=== PATIENT | male | born 1955 | race Caucasian/White ===

== ENCOUNTER 2018-10-14 06:49 | Day surgery (SDC) | payer BC, SELFPAY ==
[2018-10-14 07:03] VITALS: BP 133/76; PULSE 69; RESP 16; TEMP 36.3; O2SAT 96
[2018-10-14] MEDS: Lactated Ringers 1,000 ML 30 ML IV (07:45)
--- NOTE | 2018-10-14 08:24 | W.COLOREPORT ---
Date of service: 10/14/18 Time of Service: 08:24 Colonoscopy Report Date of procedure: 10/14/18 Pre-op diagnosis general: Colorectal cancer screening Post-op diagnosis procedure note: other (Rectal polyp) Procedure: Colonoscopy to the cecum with biopsy by cold forceps Surgeon: cJarlos Ga Anesthesia proc note operative: MAC (Leticia Sullivan CRNA; ASA 2 Mallampati class II) Estimated blood loss (mL): 1 Pathology: other (Rectal polyp) Complications: None Disposition: same day Indications: 62-year-old gentleman presenting for colorectal cancer screening by colonoscopy. He has no family history of colorectal cancer. He is been asymptomatic since his last colonoscopy over 10 years ago which was unremarkable. The procedure is been reviewed with him, and the risks of the procedure discussed. All his questions were answered to his satisfaction, and consents been obtained to proceed with colonoscopy Prep: Miralax/Dulcolax (Prep quality excellent) Procedure Start Time: 09:45 Procedure End Time: 09:05 Retraction Time: 10 Findings: In examining the colon from cecum to anus, 1 polyp was identified in the rectum no other abnormalities were noted. Procedure Description: The patient was seen in the day surgery waiting area. His identification was confirmed, and procedure checked. He was then brought to the procedure room. Monitoring for telemetry, blood pressure, oxygen saturation, and end tidal CO2 monitoring were applied. An appropriate time out was performed to confirm, identification, allergies, medication, procedure, was performed. Sedation was titrated for affect by the NATHEN; Once adequate sedation was achieved, I performed a inspection of the external perineum, and a digitial rectal examination. No significant external abnormalities were noted. On digital rectal examination, there was no blood, no masses, good rectal tone, and a normal prostate. I advanced the colonoscope from the anus to the cecum under direct visualization. The cecum was identified by the ileal-cecal valve, and the appendiceal orifice. The scope was then withdrawn in circumferential manner from the cecum to the rectum. No abnormalites were noted in the colon. The scope was then withdrawn into the rectum, and retroflexed. A single polyp was identified in the rectum and removed by cold biopsies forceps. The scope was then withdrawn, terminating the procedure. There were no complications during the procedure, and the patient tolerated the procedure well. He was returned to the day surgery recovery area in good condition. Plan: We will await pathology before making further recommendations.
--- NOTE | 2018-10-14 09:07 | BOWEL_PTH ---
PATIENT: Visahl Robb LOC: BOB U#:[id number] AGE/SX: 62/M ROOM: RE10/14/[address]: Jcarlos Ga DO : 1955 BED: DIS: 10/14/2018 SPEC #: [id number] RECD: 10/14/18 12:58 STATUS: SAVAGE REQ #: [id number] SUSY: 10/14/18 09:[address]: Jcarlos Ga DEPT: Surgical Specimen RECD BY: Rima Dunn ENTERED: 10/14/18 12:59 SP TYPE: Bowel OTHR DR: Chito Hanley MD Tissues: 1 - BIOPSY BOWEL Procedures: GROSS AND MICRO LEVEL 4 Comments: [id number]
--- NOTE | 2018-10-14 09:19 | W.PM.DSUDISC ---
Discharge Plan Disposition Patient Disposition: HOME Condition: Good Discharge Details Reason For Visit: SCREENING Attending Provider: Jcarlos Ga Primary Care Provider: Chito Hanley Home Meds and New Rx's Prescriptions: Continue ibuprofen 200 mg capsule 200 mg PO DAILY PRN PRNRF: 0 bisacodyl [Dulcolax (bisacodyl)] 5 mg tablet,delayed release (DR/EC) 10 mg PO BID Qty: 4 RF: 0 polyethylene glycol 3350 [Miralax] 17 gram/dose powder 255 g PO ONCE Qty: 255 RF: 0 aspirin [Aspir-81] 81 MG tablet,delayed release (DR/EC) 81 mg PO DAILY RF: 0 MEN'S 50+ ADVANCED MULTIVIT CP 1 EACH capsule 1 ea PO DAILY RF: 0 fluticasone 16 GM spray,suspension 2 spr NS DAILY Qty: 1 RF: 2 Discharge Instructions Instructions: Colonoscopy (DC) Activity:: Activity as Tolerated Diet:: As Tolerated Discharge Orders Discharge Orders: Discharge Order (Routine); Ordered 10/14/18 Ordered By: Jcarlos Ga DS: Diagnosis Discharge Diagnosis (1) Encounter for colorectal cancer screening: Status: Acute Asessment and Plan: Colonoscopy performed: Colonoscopy Report Date of procedure: 10/14/18 Pre-op diagnosis general: Colorectal cancer screening Post-op diagnosis procedure note: other (Rectal polyp) Procedure: Colonoscopy to the cecum with biopsy by cold forceps Surgeon: Jcarlos Ga Anesthesia proc note operative: MAC (Leticia Sullivan CRNA; ASA 2 Mallampati class II) Estimated blood loss (mL): 1 Pathology: other (Rectal polyp) Complications: None Disposition: same day Indications: 62-year-old gentleman presenting for colorectal cancer screening by colonoscopy. He has no family history of colorectal cancer. He is been asymptomatic since his last colonoscopy over 10 years ago which was unremarkable. The procedure is been reviewed with him, and the risks of the procedure discussed. All his questions were answered to his satisfaction, and consents been obtained to proceed with colonoscopy Prep: Miralax/Dulcolax (Prep quality excellent) Procedure Start Time: 09:45 Procedure End Time: 09:05 Retraction Time: 10 Findings: In examining the colon from cecum to anus, 1 polyp was identified in the rectum no other abnormalities were noted. Procedure Description: The patient was seen in the day surgery waiting area. His identification was confirmed, and procedure checked. He was then brought to the procedure room. Monitoring for telemetry, blood pressure, oxygen saturation, and end tidal CO2 monitoring were applied. An appropriate time out was performed to confirm, identification, allergies, medication, procedure, was performed. Sedation was titrated for affect by the ROLLED SEAT TRIMMER; Once adequate sedation was achieved, I performed a inspection of the external perineum, and a digitial rectal examination. No significant external abnormalities were noted. On digital rectal examination, there was no blood, no masses, good rectal tone, and a normal prostate. I advanced the colonoscope from the anus to the cecum under direct visualization. The cecum was identified by the ileal-cecal valve, and the appendiceal orifice. The scope was then withdrawn in circumferential manner from the cecum to the rectum. No abnormalites were noted in the colon. The scope was then withdrawn into the rectum, and retroflexed. A single polyp was identified in the rectum and removed by cold biopsies forceps. The scope was then withdrawn, terminating the procedure. There were no complications during the procedure, and the patient tolerated the procedure well. He was returned to the day surgery recovery area in good condition. Plan: We will await pathology before making further recommendations.
[2018-10-14 09:50] VITALS: BP 119/72; PULSE 62; RESP 16; TEMP 35.9; O2SAT 96
== END 2018-10-14 10:04 | disposition home or self-care (01) ==
PROVIDERS: PCP Family Medicine; Visit Provider Surgery
PROC: 0DJD8ZZ Inspection of Lower Intestinal Tract, Via Natural or Artificial Opening Endoscopic (ICD-10-PCS; CPT 45378; principal; 2018-10-14 08:30)
DX: Z12.11 Encounter for screening for malignant neoplasm of colon (principal); K62.1 Rectal polyp
CPT/HCPCS: 45380; 88305

== ENCOUNTER 2022-12-25 01:03 | Outpatient (CLI) | payer MEDICARE, SELFPAY ==
[2022-12-25 12:44] LABS: Anion Gap 5.4 mmol/L (3-11); BUN 23 mg/dL (7-18); CO2 29.6 mmol/L (21.0-32.0); Calcium 9.1 mg/dL (8.5-10.1); Chloride 104 mmol/L (98-107); Cholesterol 185 mg/dL (<200); Estimated GFR 82.49 (mL/min/1.73m2); Glucose 98 mg/dL (74-106); HDL Cholesterol 64 mg/dL (40-60); Potassium 3.9 mmol/L (3.5-5.1); Sodium 139 mmol/L (136-145)
[2022-12-25 13:18] LABS: Triglyceride < 25 mg/dL (<150)
[2022-12-25 18:34] LABS: LDL CHOLESTEROL 116 mg/dL (<100)
== END 2022-12-25 01:04 | disposition home or self-care (01) ==
LOC: LOS 01:03
PROVIDERS: PCP Nurse Practitioner Family; Visit Provider Nurse Practitioner Family
DX: I10 Essential (primary) hypertension (principal)
CPT/HCPCS: 36415; 80048; 80061; 83721

== ENCOUNTER 2022-12-29 17:04 | Outpatient (REF) | payer MEDICARE, SELFPAY ==
[2022-12-29 18:21] LABS: COMMENT (LAB VIEW ONLY) 123.78 mg/dL; Microalb ug/mg Crea 6.6 ug/mg Cr
== END 2022-12-29 17:05 | disposition home or self-care (01) ==
LOC: LBN 17:04
PROVIDERS: PCP Nurse Practitioner Family; Visit Provider Nurse Practitioner Family
DX: I10 Essential (primary) hypertension (principal)
CPT/HCPCS: 82043; 82570

== ENCOUNTER 2023-01-11 08:20 | Outpatient (CLI) | payer MEDICARE, SELFPAY ==
[2023-01-11 13:04] LABS: Anion Gap 6.7 mmol/L (3-11); BUN 25 mg/dL (7-18); CO2 28.3 mmol/L (21.0-32.0); CREATININE 0.9 mg/dL (0.70-1.30); Calcium 8.9 mg/dL (8.5-10.1); Chloride 105 mmol/L (98-107); Estimated GFR 93.61 (mL/min/1.73m2); Glucose 99 mg/dL (74-106); Potassium 3.7 mmol/L (3.5-5.1); Sodium 140 mmol/L (136-145)
[2023-01-11 18:11] LABS: PSA, Screening 0.6 ng/mL (<=4.5)
== END 2023-01-11 08:21 | disposition home or self-care (01) ==
PROVIDERS: PCP Nurse Practitioner Family; Visit Provider Nurse Practitioner Family
DX: I10 Essential (primary) hypertension (principal); Z12.5 Encounter for screening for malignant neoplasm of prostate
CPT/HCPCS: 36415; 80048; 84153

== ENCOUNTER 2023-02-17 07:31 | Outpatient (CLI) | payer MEDICARE, SELFPAY ==
--- NOTE | 2023-02-17 07:30 | RT.EKG_ITS ---
APPROVED REPORT Exam: Resting ECG Reason for Exam: chest tightness Patient Location: O HR:66 bpm ECG Measurements Heart Rate 66 AXIS MS 195 P 40 QRSd 101 QRS -9 QT 442 T 36 QTc 464 Conclusion Sinus rhythm...normal P axis, V-rate 50- 99 Probable left ventricular hypertrophy...multiple LVH criteria
== END 2023-02-17 07:32 | disposition home or self-care (01) ==
LOC: DI.CM 07:34
PROVIDERS: PCP Nurse Practitioner Family; Visit Provider Nurse Practitioner Family
DX: R07.89 Other chest pain (principal); I42.2 Other hypertrophic cardiomyopathy
CPT/HCPCS: 93010

== ENCOUNTER 2023-02-19 12:04 | Emergency (ER) | payer MEDICARE, SELFPAY ==
--- NOTE | 2023-02-19 12:00 | RT.EKG_ITS ---
APPROVED REPORT Exam: Resting ECG Reason for Exam: Patient Location: E HR:78 bpm ECG Measurements Heart Rate 78 AXIS AZ 196 P 47 QRSd 111 QRS -7 QT 395 T 48 QTc 451 Conclusion Sinus rhythm...normal P axis, V-rate 60- 99 Probable left ventricular hypertrophy...(RaVL+SV3)xQRSd >280 sinus rhythm, left axis, LVH
[2023-02-19 12:12] VITALS: BP 165/64; PULSE 85; RESP 18; TEMP 36.9; O2SAT 96
[2023-02-19 12:32] LABS: Abs Immature Grans 0.01 10^3/uL (0.0-0.06); Absolute Basophil Count 0.05 10^3/uL (0.0-0.2); Absolute Eosinophil Count 0.26 10^3/uL (0.0-0.7); Absolute Lymphocyte Count 1.91 10^3/uL (1.2-3.4); Absolute Monocyte Count 0.55 10^3/uL (0.1-0.8); Absolute Neutrophil Count 3.68 10^3/uL (1.2-6.7); Basophils % 0.8; HCT 43.9 % (40.0-50.0); Immature Grans % 0.2; Lymphocytes % 29.6; MCH 31.7 pg (27.0-33.0); MCHC 34.2 % (32.0-36.0); MCV 93 fL (80-95); MPV 10.2 fL (8.0-11.0); Monocytes % 8.5; Neutrophils % 56.9; Platelet Count 287 10^3/uL (130-400); RBC 4.73 10^6/uL (4.36-5.78); RDW 12.1 % (11.8-14.1); RDW-SD 41.6 fL; WBC 6.46 10^3/uL (4.4-10.8)
[2023-02-19] MEDS: Aspirin 81 MG CHEW 324 MG CH (12:51)
[2023-02-19 13:00] VITALS: BP 151/59; PULSE 78; RESP 16; O2SAT 94
[2023-02-19 13:21] LABS: ALT 25 U/L (16-63); AST 22 U/L (15-37); Albumin 3.9 g/dL (3.4-5.0); Alkaline Phosphatase 78 U/L (46-116); Anion Gap 9.8 mmol/L (3-11); BUN 17 mg/dL (7-18); Bilirubin, Total 0.8 mg/dL (0.2-1.0); CO2 25.2 mmol/L (21.0-32.0); Calcium 8.7 mg/dL (8.5-10.1); Chloride 106 mmol/L (98-107); Estimated GFR 82.49 (mL/min/1.73m2); Glucose 107 mg/dL (74-106); Magnesium 2.1 mg/dL (1.8-2.4); Sodium 141 mmol/L (136-145); Troponin I < 50 ng/L (<or=60)
--- NOTE | 2023-02-19 13:39 | ED.GENADUL_ITS ---
Discharge Plan Disposition Patient Disposition: Home Discharge Details Clinical Impression: Chest pain, unspecified Primary Care Provider: Basil Cruz ED Provider: Chito Moy Home Meds and New Rx's Prescriptions: Continued amoxicillin-pot clavulanate 875-125 mg tablet 1 tab PO Q12H Qty: 28 0RF Rx Instructions: Take 1 tablet twice a day for 2 weeks amlodipine 5 mg tablet 5 mg PO DAILY Qty: 90 4RF MEN'S 50+ ADVANCED MULTIVIT CP 1 EACH capsule 1 ea PO DAILY fluticasone propionate 50 mcg/actuation spray,suspension 2 spray NS DAILY Qty: 2 11RF sildenafil 100 mg tablet 100 mg PO DAILY PRN (Reason: sexual activity) Qty: 30 12RF Rx Instructions: administer 30 minutes to 4 hours before activity losartan 100 mg tablet 100 mg PO DAILY Qty: 30 0RF Discharge Instructions Instructions: Chest Pain (ED) Additional Instructions: Please read all of the information that accompanies these instructions. You were seen in the emergency department for your chest pain. Please schedule an appointment with your primary care provider later this week. Please return to the emergency department if develop shortness of breath any sweating with the chest pain or if you have any concerns. Discharge Data Discharge Date/Time-TO BE ENTERED AT DEPARTURE: 02/19/23 16:43 Medical Decision Making <Antonio Mtz NP - Last Filed: 02/20/23 08:22> Patient presenting to the emergency department for chief complaint of chest pain. Patient was recently diagnosed with hypertension and they have been trying different medications. Last week they changed him off of lisinopril due to it causing a cough onto a new medication and at that visit also noticed a new murmur that was very subtle. Patient states this morning he started having chest pain with some discomfort radiating into left arm. He states some fuzzy vision but otherwise denies any vision changes. Patient denies all other symptoms. Physical exam is unremarkable for any acute findings. We will plan on performing EKG and labs along with chest x-ray. If able we will attempt to get an echo given new onset murmur. Please see physician interpretation for full interpretation of EKG but upon my review patient is in sinus rhythm with a rate of 78, some slight ST depressions are noted in lead I and II otherwise EKG is nondiagnostic and does not meet acute STEMI criteria. We will continue to monitor. Review of labs show a completely normal CBC, CMP shows slightly elevated glucose at 107 otherwise unremarkable. Initial troponin is negative otherwise all of the labs are within normal range. We were able to obtain echo pending delta tro ponin. Pending echo and delta troponin did discuss with patient his higher heart score with moderate risk of Mace. After informed discussion and shared decision making patient did state that if work-up was negative he would prefer to have stress testing on outpatient basis. I feel this is reasonable given that patient is now pain-free with no discomfort at this time. Patient will be signed out pending echo results, repeat EKG, and troponin. Outpatient stress test was ordered with anticipation of discharge. HPI <Antonio Mtz NP - Last Filed: 02/20/23 08:22> General Mode of arrival: ambulatory . Date/Time Provider Initiated Documentation: 02/19/23 12:14 . Limitations to Documentation: no limitations . Information obtained by: patient and RN notes reviewed . History of Present Illness 67 year old M presents to the emergency department with the chief complaint of Chest pain, described as moderate, with intensity rated at 3. Quality is described as aching, and is localized to the chest. Patient extremity. Patient started experiencing this hour(s) (3) and it has been constant. No relieving factors improve symptom(s), No exacerbating factors reported . Patient notes other (Slight fuzzy vision). Patient did receive the following treatments prior to arrival, none Related Data Home Medications Medication Instructions Recorded Confirmed Men's 50+ Advanced Multivit Cp 1 ea PO DAILY 05/25/13 02/19/23 fluticasone propionate 50 2 spray NS DAILY #2 inhalations 11/24/22 02/19/23 mcg/actuation nasal spray,suspension sildenafil 100 mg tablet 100 mg PO DAILY PRN sexual 11/24/22 02/19/23 activity #30 tabs losartan 100 mg tablet 100 mg PO DAILY #30 tabs 02/02/23 02/19/23 amlodipine 5 mg tablet 5 mg PO DAILY #90 tabs 02/17/23 02/19/23 amoxicillin 875 mg-potassium 1 tab PO Q12H #28 tabs 02/17/23 02/19/23 clavulanate 125 mg tablet Previous Rx's Medication Instructions Recorded fluticasone propionate 50 2 spray NS DAILY #2 inhalations 11/24/22 mcg/actuation nasal spray,suspension sildenafil 100 mg tablet 100 mg PO DAILY PRN sexual 11/24/22 activity #30 tabs losartan 100 mg tablet 100 mg PO DAILY #30 tabs 02/02/23 amlodipine 5 mg tablet 5 mg PO DAILY #90 tabs 02/17/23 amoxicillin 875 mg-potassium 1 tab PO Q12H #28 tabs 02/17/23 clavulanate 125 mg tablet Allergies Allergy/AdvReac Type Severity Reaction Status Date / Time lisinopril AdvReac Intermediate Other (See Uncoded 02/19/23 12:18 Comment) General Stated Complaint: Chest Pain TERRANCE: 3 Review of Systems <Antonio Mtz NP - Last Filed: 02/20/23 08:22> Constitutional Constitutional: Denies chills, Denies fever(s), Denies headache(s), Denies lethargy and Denies malaise Eyes Eyes: Denies blurry vision, Reports change in vision and Denies loss of vision ENT Ears, Nose, Mouth, and Throat: Denies headache(s), Denies neck pain and Denies sore throat Cardiovascular Cardiovascular: Reports as per HPI, Reports chest pain, Denies edema, Denies irregular heart rhythm, Denies palpitations, Denies dyspnea and Denies dyspnea on exertion Respiratory Respiratory: Denies dyspnea and Denies dyspnea on exertion Gastrointestinal Gastrointestinal: Denies abdominal pain, Denies nausea and Denies vomiting Musculoskeletal Musculoskeletal: Denies neck pain Neurologic Neurologic: Denies headache(s) and Denies loss of vision Psychiatric Psychiatric: Denies anxiety Endocrine Endocrine: Denies cold intolerance, Denies heat intolerance and Denies palpitations PFSH <Antonio Mtz NP - Last Filed: 02/20/23 08:22> All Active Problems (Updated 02/19/23 @ 16:35 by Chito Moy MD) Allergic rhinitis (Acute) Anxiety (Acute) History of tobacco use (Acute) Polyp of colon (Acute 10/28/06) multiple hyperplastic polyps Abdominal pain (Acute) Encounter for annual physical exam (Acute) Right arm pain (Acute) Increased body mass index (BMI) (Acute) Screening for diabetes mellitus (Acute) Hypertension (Chronic) Murmur, cardiac (Acute) Perforated tympanic membrane of both ears on examination (Acute) Rhinosinusitis (Acute) Chest pain, unspecified (Acute) Medical History Encounter for colorectal cancer screening Perforation of tympanic membrane Surgical History H/O colonoscopy (10/14/18) dr newby, no abnormalities, repeat 10 years Family History Mother , 84 Stroke Father , 60 Brain cancer Brother , Accidental at age 2. No problems noted. Brother No problems noted. Brother No problems noted. Brother No problems noted. Son No problems noted. Daughter No problems noted. Daughter No problems noted. Paternal Grandmother , 80s Stroke Maternal Grandmother , 22 No problems noted. Paternal Grandfather , 70s No problems noted. Maternal Grandfather , 80s No problems noted. Social History Smoking/Tobacco Use Status: Former Tobacco Use tobacco type: cigarettes Quit Date: 11/29/89 Tobacco: How many years used: 10 Second Hand Exposure: No Smoking risk assessment performed?: Yes Alcohol Intake: current Alcohol Intake frequency: a few times a week Alcohol type: hard liquor Drug use: Never Substance use type: does not use Caregiver/Support person: No Household members: significant other Housing: house Communication Needs: None Do you need help understanding health information?: Rarely Pets and animals: Yes Pets and animals: dog(s) Sexually active: Yes Do you think of yourself as: straight/heterosexual Current gender identity: male What is your relationship status?: living with partner How often do you talk on the phone with friends or family?: three or more times per week How often do you get together with friends or relatives?: twice per week How often do you attend buddhist or islam services?: 1-3 times per year Do you belong to any clubs or organized social groups?: no Panel score (0-1 are the most socially isolated patients): 2 What type of physical activity do you participate in: walking and other Details: work Duration: 15-30 minutes/day Frequency: 1-2 times per week Ambar/Restorationist: Buddhism Special ambar needs: No Seatbelt use: always Helmet use: Yes Helmet use: always Drive intox or ride w/intox medical driver: No Do you feel safe at home: Yes Do you feel safe in your relationship?: Yes Exam <Antonio Mtz NP - Last Filed: 02/20/23 08:22> Const General: cooperative, healthy appearing, comfortable, no acute distress, not diaphoretic and not ill appearing Nutritional Appearance: average body habitus Orientation: alert, awake and oriented x3 Limitations: mental status not altered Neck Neck: normal visual inspection, full ROM, trachea midline, supple and no anterior neck swelling Thyroid: thyroid normal Carotids: normal carotid upstroke and no bruits Chest Chest: normal inspection of the chest Resp Effort & Inspection: normal respiratory effort and able to speak in complete sentences Auscultation: clear to auscultation bilaterally Cardio Jugular venous pressure: no JVD Palpation: normal PMI Rate: regular rate Rhythm: regular rhythm Heart Sounds: no click, no gallops, murmur systolic II/ and no rubs Bruits: no abdominal aortic bruits and no carotid bruits Pulses: radial pulses present bilaterally 2+ GI Inspection: normal to inspection Palpation: soft, no aortic enlargement, no pulsatile masses and nontender Auscultation: normal bowel sounds Skin General skin exam: no rashes or lesions noted Neuro General: patient alert, patient awake, patient oriented x3, tone normal and moves all extremities Course <Antonio Mtz NP - Last Filed: 02/20/23 08:22> Vital Signs Vital signs: Vital Signs Temperature 36.9 C 02/19/23 12:12 Pulse 85 02/19/23 12:12 Respiratory Rate 18 02/19/23 12:12 Blood Pressure 165/64 H 02/19/23 12:12 Pulse Oximetry 96 02/19/23 12:12 Temperature 36.9 C 02/19/23 12:12 Temperature Source Oral 02/19/23 12:12 Pulse 85 02/19/23 12:12 Respiratory Rate 18 02/19/23 12:12 Respiratory Effort Short of Breath 02/19/23 12:18 Blood Pressure 165/64 H 02/19/23 12:12 Blood Pressure Position Sitting 02/19/23 12:12 Pulse Oximetry 96 02/19/23 12:12 Oxygen Delivery Method Room Air 02/19/23 12:12 Oxygen Flow Rate 0 02/19/23 12:12 Pain Level 6 02/19/23 12:23 Lab/Test Results Lab/Test Results: Laboratory Tests Range/Units 02/19/23 02/19/23 12:20 12:20 WBC (4.4-10.8) 10^3/uL 6.46 RBC (4.36-5.78) 10^6/uL 4.73 Hgb (13.5-17.5) g/dL 15.0 Hct (40.0-50.0) % 43.9 MCV (80-95) fL 93 MCH (27.0-33.0) pg 31.7 MCHC (32.0-36.0) % 34.2 RDW (11.8-14.1) % 12.1 Plt Count (130-400) 10^3/uL 287 MPV (8.0-11.0) fL 10.2 Immature Gran % 0.2 Neutrophils % 56.9 Lymphocytes % 29.6 Monocytes % 8.5 Eosinophils % 4.0 Basophils % 0.8 Nucleated RBC % (0.0-0.3) % 0.0 Absolute Neutrophils (1.2-6.7) 10^3/uL 3.68 Absolute Lymphocytes (1.2-3.4) 10^3/uL 1.91 Absolute Monocytes (0.1-0.8) 10^3/uL 0.55 Absolute Eosinophils (0.0-0.7) 10^3/uL 0.26 Absolute Basophils (0.0-0.2) 10^3/uL 0.05 Sodium (136-145) mmol/L 141 Potassium (3.5-5.1) mmol/L 4.0 Chloride (98-107) mmol/L 106 Carbon Dioxide (21.0-32.0) mmol/L 25.2 Anion Gap (3-11) mmol/L 9.8 BUN (7-18) mg/dL 17 Creatinine (0.70-1.30) mg/dL 1.0 Est GFR (CKD-EPI 2020) (mL/min/1.73m2) 82.49 Glucose (74-106) mg/dL 107 H Calcium (8.5-10.1) mg/dL 8.7 Magnesium (1.8-2.4) mg/dL 2.1 Total Bilirubin (0.2-1.0) mg/dL 0.8 AST (15-37) U/L 22 ALT (16-63) U/L 25 Alkaline Phosphatase (46-116) U/L 78 Troponin I (<or=60) ng/L < 50 Total Protein (6.4-8.2) g/dL 7.0 Albumin (3.4-5.0) g/dL 3.9 Sign Out <Antonio Mtz NP - Last Filed: 02/20/23 08:22> Sign Out Data: Sign Out Comment: Patient pending echo results, chest x-ray results, and delta troponin. Disposition following those results. Patient is pain-free and requesting discharge for further outpatient follow-up on stress test. Patient states understanding of high risk and low threshold to return for worsening symptoms or return of symptoms. Last updated by Antonio Mtz NP at 02/19/23 15:46 PAWSS <Antonio Mtz NP - Last Filed: 02/20/23 08:22> Have you Been Recently Intoxicated or Drunk Within the Last 30 days?: No Have you Ever Experienced Previous Episodes of Alcohol Withdrawal?: No Have you ever Experienced Withdrawal Seizures?: No Have you ever Experienced Delirium Tremens(DT)s?: No Have you ever undergone Alcohol Rehabilitation Treatment (i.e, inpt ot outpatient treatment programs)?: No Have you ever Experienced Blackouts?: No Have you ever Combined Alcohol with other Downers within the last 90 days?: No Have you ever Combined Alcohol with any other Substance of Abuse during the last 90 days?: No Positive Blood Alcohol level on Presentation? [PCS.BAL]: No Evidence of Increased Autonomic Activity (i.e. HR>120, tremor, sweating, agitation, nausea)?: No Result: 0 <Chito Moy MD - Last Filed: 02/20/23 20:35> Result: 0
[2023-02-19 14:00] VITALS: BP 141/64; PULSE 77; O2SAT 95
[2023-02-19 14:30] VITALS: BP 147/62; PULSE 75; O2SAT 95
[2023-02-19 15:48] LABS: Troponin I < 50 ng/L (<or=60)
--- NOTE | 2023-02-19 15:56 | W.EDPROG ---
Date of service: 02/19/23 Time of Service: 15:56 Medical Decision Making I received signout on this 67-year-old male with a history of obesity and hypertension pending a repeat troponin, ECG, and final read of echocardiogram in setting of chest pain. Patient has been offered hospitalization for stress test given his elevated heart score. Please see documentation from patient's original provider as the patient declined hospitalization. We will follow-up following testing. 4:36 PM I met with the patient after his repeat troponin was negative. His ECG showed normal sinus rhythm with no ischemic changes. He did have left axis deviation and with LVH based on voltage criteria in aVL most consistent with longstanding hypertension. Patient did have severe aortic regurgitation but no hemodynamically significant valvular aortic stenosis. He had a normal EF with no significant wall motion abnormalities on contrast echocardiogram. I advised patient that this report was still a draft. I reported that I was planning on calling radiology to determine if the report would be finalized this afternoon. Patient wanted to go home. We will plan on calling him if the report becomes finalized on my shift. I advised him to return to the emergency department if he developed any shortness of breath chest pain that radiates into his arm or if he had any other concerns. His prior provider ordered a stress test for him next week. Sign Out Sign Out Data: Sign Out Comment: Patient pending echo results, chest x-ray results, and delta troponin. Disposition following those results. Patient is pain-free and requesting discharge for further outpatient follow-up on stress test. Patient states understanding of high risk and low threshold to return for worsening symptoms or return of symptoms. Last updated by Antonio Mtz NP at 02/19/23 15:46 Discharge Plan Disposition Patient Disposition: Home Discharge Details Clinical Impression: Chest pain, unspecified Primary Care Provider: Basil Cruz ED Provider: Chito Moy Home Meds and New Rx's Prescriptions: Continued amoxicillin-pot clavulanate 875-125 mg tablet 1 tab PO Q12H Qty: 28 0RF Rx Instructions: Take 1 tablet twice a day for 2 weeks amlodipine 5 mg tablet 5 mg PO DAILY Qty: 90 4RF MEN'S 50+ ADVANCED MULTIVIT CP 1 EACH capsule 1 ea PO DAILY fluticasone propionate 50 mcg/actuation spray,suspension 2 spray NS DAILY Qty: 2 11RF sildenafil 100 mg tablet 100 mg PO DAILY PRN (Reason: sexual activity) Qty: 30 12RF Rx Instructions: administer 30 minutes to 4 hours before activity losartan 100 mg tablet 100 mg PO DAILY Qty: 30 0RF Discharge Instructions Instructions: Chest Pain (ED) Additional Instructions: Please read all of the information that accompanies these instructions. You were seen in the emergency department for your chest pain. Please schedule an appointment with your primary care provider later this week. Please return to the emergency department if develop shortness of breath any sweating with the chest pain or if you have any concerns. Discharge Data Discharge Date/Time-TO BE ENTERED AT DEPARTURE: 02/19/23 16:43
--- NOTE | 2023-02-19 16:02 | DI.RAD_ITS ---
Exam(s) XR CHEST 2V PA LATERAL EXAM: XR CHEST 2V PA LATERAL CLINICAL HISTORY: chest pain TECHNIQUE: 2D digital imaging was performed of the chest. Two images were obtained. PA and lateral views were obtained. COMPARISON: CR CHEST 2 VIEWS PA,LAT from 01/12/2014 FINDINGS: MEDIASTINUM: Normal. HEART: Normal. PULMONARY VASCULATURE: Normal. There is tortuosity of the thoracic aorta. LUNGS: Clear. PLEURAL SPACE: No pleural effusion or pneumothorax. BONE:Within normal limits for the patient's age. OTHER FINDINGS:Normal. IMPRESSION: No acute pulmonary findings. DATA REPOSITORY: RADIATION DOSE DELIVERED:
--- NOTE | 2023-02-20 00:42 | NUR.NOTE ---
regular exercise treadmill stress test requisition faxed to [phone].Nursing Note:
--- NOTE | 2023-02-22 09:11 | NUR.NOTE ---
Nursing Note: Accessed patient chart to determine how many EKG orders were in the chart from the ED. There was an outstanding EKG in ordered status. There are no EKG's in the [employer] system that are outstanding. EKG order was deleted.
== END 2023-02-19 16:43 | disposition home or self-care (01) ==
PROVIDERS: Nurse Practitioner Family; Emergency Provider Emergency Medicine; PCP Nurse Practitioner Family
DX: R07.89 Other chest pain (principal); I11.9 Hypertensive heart disease without heart failure; H53.8 Other visual disturbances; R94.31 Abnormal electrocardiogram [ECG] [EKG]; R73.09 Other abnormal glucose
CPT/HCPCS: 36415; 80053; 93005; 99284; 71046; 83735; 84484; 85025; 93010; 93306

== ENCOUNTER 2023-02-25 00:57 | Outpatient (CLI) | payer MEDICARE, SELFPAY ==
--- NOTE | 2023-02-25 | ETT_ITS ---
APPROVED REPORT Exam: Exercise Treadmill Patient Location: Out-Patient Room/Bed: Stress Nurse: Smiley Rehman RN Ordering Provider:NICO MAGAÑA, Contact Number: [phone] BMI: 25.96 Baseline Rhythm: Sinus Rhythm Comment: Patient noted to be very anxious. REports BP's in the 160's systolically at home at baseline . Patient also reports feeling scared and nervous regarding unknown prognosis. REassured and all qu estions answered by stress team. Indications: Chest pain Medical History Medical History: Chest pain, aortic regurgitation, murmur, HTN, increased BMI, anxiety Cardiac Medications: Losartan, amlodipine Allergies: lisinopril Cardiac Risk Factors: Family hx, HTN, Previous smoker Previous Cardiac Procedures: None Pretest Chest Pain Characteristics: None Exercise History: Indeterminate Physical Disabilities: None Lung Sounds: Clear to auscultation Heart Sounds: Regular Stress Test Details Test: Exercise stress testing was performed using a Harsha protocol. Rest Stress HR Resting HR Supine: 77 bpm Max Heart Rate (APMHR): 153 bpm Resting HR Standin bpm Target HR (85% APMHR): 130 bpm Max HR Achieved: 133 bpm % of APMHR: 87 Recovery HR: 88 bpm HR response to stress: Normal HR response to stress BP Resting BP Supine: 190/72 mmHg Resting BP Standin/68 mmHg Max BP: 230/62 mmHg Recovery BP: 156/72 mmHg BP response to stress: Abnormal hypertensive response to stress. Comment: Patient noted and reports to be nervous and anxious prior top test. Reports BP's in the 160' s systolically at home. ECG Stress ECG: Sinus Rhythm ST Change: No significant ST segment changes noted Arrhythmia: None Recovery ECG: Sinus Rhythm Recovery ST Change: No significant ST segment changes noted Recovery Arrhythmia: Rare PVC Clinical Reason for Termination: HTN, , Target HR Achieved Stress Symptoms: Slight Dyspnea Exercise duration: 7 min00 sec Highest Stage Reached: Stage 3: 3.4 mph at 14% grade. Exercise capacity: 8.58 METs Angina Score: None Loera Treadmill Score: 6.5 Rate Pressure Product: 08906 Stress ECG Conclusion 1. Resting electrocardiogram showed voltage for left ventricular hypertrophy 2. Patient exercised on the Harsha protocol and completed a workload of 8.58 METS 3. Hypertensive blood pressure response to exercise. Normal heart rate response to exercise. The pa melanie achieved 87% of predicted heart rate for age 4. There was no electrocardiographic evidence of myocardial ischemia 5. There were no significant dysrhythmias Loera Treadmill Score is 6.5 which is Low risk. Stress Test Summary STAGE Time (mins) Speed (mph) Grade (%) HR BP SpO2 SYMPTOMS METS Supine 77 190/78 Standing 79 178/68 98 1 3 1.7 10 102 210/86 98 4.5 2 6 2.5 12 125 220/82 7 3 9 3.4 14 126 10 1 min recovery 113 230/62 3 min recovery 93 210/68 6 min recovery 88 156/72 Patient noted to be very anxious. Reports BP's in the 160's systolically at home at baseline. Patient also reports feeling scared and nervous regarding unknown prognosis. Reassured and all questions a nswered by stress team.
== END 2023-02-25 01:17 ==
LOC: DI 00:58
PROVIDERS: PCP Nurse Practitioner Family; Visit Provider Nurse Practitioner Family
DX: R07.9 Chest pain, unspecified (principal)
CPT/HCPCS: 93016; 93018; 99203; 93017

== ENCOUNTER 2023-02-25 08:28 | Outpatient (CLI) | payer MEDICARE, SELFPAY | END 2023-02-25 08:29 | disposition home or self-care (01) | LOC: DI.CARD 08:29 | PROVIDERS: PCP Nurse Practitioner Family; Visit Provider Internal Medicine Cardiovascular Disease | CPT/HCPCS: 93010 ==

== ENCOUNTER 2023-03-01 03:30 | Outpatient (CLI) | payer MEDICARE, SELFPAY ==
[2023-03-01 11:21] LABS: INR 1.1 (0.9-1.1); Prothrombin Time 10.9 sec (9.3-11.0)
== END 2023-03-01 03:31 | disposition home or self-care (01) ==
LOC: LBO 03:30
PROVIDERS: PCP Nurse Practitioner Family; Visit Provider Internal Medicine Cardiovascular Disease
DX: I35.1 Nonrheumatic aortic (valve) insufficiency (principal); M79.601 Pain in right arm; Z01.812 Encounter for preprocedural laboratory examination
CPT/HCPCS: 36415; 85610; 85730

== ENCOUNTER 2023-05-07 13:14 | Outpatient (CLI) | payer MEDICARE, SELFPAY ==
[2023-05-07 14:12] LABS: ALT 29 U/L (16-63); AST 18 U/L (15-37); Albumin 3.8 g/dL (3.4-5.0); Alkaline Phosphatase 71 U/L (46-116); Anion Gap 6.2 mmol/L (3-11); BUN 19 mg/dL (7-18); Bilirubin, Total 0.6 mg/dL (0.2-1.0); CO2 26.8 mmol/L (21.0-32.0); CREATININE 0.9 mg/dL (0.70-1.30); Calcium 8.4 mg/dL (8.5-10.1); Calculated LDL 51 mg/dL (<100); Chloride 105 mmol/L (98-107); Cholesterol 123 mg/dL (<200); Estimated GFR 93.61 (mL/min/1.73m2); Glucose 92 mg/dL (74-106); HDL Cholesterol 58 mg/dL (40-60); Potassium 3.8 mmol/L (3.5-5.1); Sodium 138 mmol/L (136-145); Total Protein 6.9 g/dL (6.4-8.2); Triglyceride 71 mg/dL (<150)
== END 2023-05-07 13:15 | disposition home or self-care (01) ==
LOC: LBO 13:16
PROVIDERS: PCP Nurse Practitioner Family; Visit Provider Thoracic Surgery (Cardiothoracic Vascular Surgery)
DX: I10 Essential (primary) hypertension (principal); E78.5 Hyperlipidemia, unspecified
CPT/HCPCS: 80053; 80061

== ENCOUNTER 2023-06-11 14:29 | Emergency (ER) | payer MEDICARE, SELFPAY ==
--- NOTE | 2023-06-11 14:30 | RT.EKG_ITS ---
APPROVED REPORT Exam: Resting ECG Reason for Exam: chest pain Patient Location: E HR:84 bpm ECG Measurements Heart Rate 84 AXIS RI 181 P 30 QRSd 104 QRS 2 QT 360 T 123 QTc 425 Conclusion Sinus rhythm...normal P axis, V-rate 60- 99 Probable LVH with secondary repol abnrm...multiple LVH criteria ST elevation, consider inferior injury...ST >0.08mV, II III aVF Physician: no stemi, minimal inferior elevation and anterior t wave abnormality. appears changed from prior ekg on 02/17/23
[2023-06-11 14:35] VITALS: BP 128/89; PULSE 89; RESP 18; TEMP 36.7; O2SAT 95
--- NOTE | 2023-06-11 14:45 | DI.CT_ITS ---
Exam(s) CT THORAX CTA EXAM: CT THORAX CTA CLINICAL HISTORY: recent thoracic AA repair and AV rep. now CP. TECHNIQUE: Imaging Protocol: CT angiography of the chest was performed using pulmonary embolus jitendra col. Multi planar reconstructions were performed. CONTRAST MATERIAL: Intravenous: Omnipaque 350 Contrast volume: 100 cc COMPARISON: CR XR CHEST 2V PA LATERAL from 02/19/2023 FINDINGS: CHEST: PULMONARY ARTERIES: There are no obvious intraluminal filling defects to suggest acute pulmonary embo li. LUNGS: There are symmetrical atelectasis-infiltrates in both lower lobes involving the posterior basa l segments, not associated with pleural effusion infiltrates in the upper lobes nor in right middle l obe and lingular segment of the left lung.. No pneumothorax. MEDIASTINUM: There is no hilar nor mediastinal adenopathy. Multiple small sub cm nodules noted in the left thyroid lobe. CARDIAC: Recent sternotomy. Sternotomy wires.There is a prosthetic aortic valve. There is some comp cyndi fluid 8 mm thick surrounding the ascending thoracic aorta. There is no pericardial effusion. No evidence of obvious dissection. Aortic arch anatomy is conventional. No evidence significant steno sis at the origin of the great vessels off the arch. There is a small outpouching arising from the i nferior aspect of the distal aortic arch, measuring approximately 8 by 5 mm. PARTIALLY VISUALIZED UPPERMOST ABDOMEN: Nonobstructive 3 millimeter calculus in left kidney. Adrenal s unremarkable. Spleen size normal. Celiac and SMA are patent. OSSEOUS: No significant osseous lesions.No fractures.. IMPRESSION: 1. No evidence of acute pulmonary emboli. No evidence of pulmonary infarction.Relatively symmetrical infiltrates-atelectasis in both lower lobes. No associated pleural effusions. 2. Recent sternotomy. Prosthetic aortic valve. There is fluid surrounding the ascending thoracic ao rta consistent with element of periaortic hematoma. Appropriate close follow-up recommended. No dis section evident. No obvious pericardial effusion. 3. There is an 8 x 5 mm outpouching evident on the inferior aspect of the distal aortic arch consiste nt with small pseudoaneurysm. First read by [facility] RADIATION DOSE DELIVERED: 492.48mGy.cm Total DLP DATA REPOSITORY: All CT scans at this facility are submitted to the National Radiology Data Registry (NRDR) Dose Index Registry (DIR) with the [employer] (ACR). RADIATION OPTIMIZATION: All CT scans at this facility use at least one of these dose optimization te chniques: automated exposure control; mA and/or kV adjustment per patient size (includes targeted exa ms where dose is matched to clinical indication); or iterative reconstruction.
[2023-06-11 15:05] LABS: Abs Immature Grans 0.03 10^3/uL (0.0-0.06); Absolute Basophil Count 0.05 10^3/uL (0.0-0.2); Absolute Eosinophil Count 0.26 10^3/uL (0.0-0.7); Absolute Lymphocyte Count 1.82 10^3/uL (1.2-3.4); Absolute Monocyte Count 0.68 10^3/uL (0.1-0.8); Absolute Neutrophil Count 5.69 10^3/uL (1.2-6.7); Basophils % 0.6; HCT 38.1 % (40.0-50.0); HGB 12.7 g/dL (13.5-17.5); Immature Grans % 0.4; Lymphocytes % 21.3; MCH 31.1 pg (27.0-33.0); MCHC 33.3 % (32.0-36.0); MCV 93 fL (80-95); MPV 9.5 fL (8.0-11.0); Neutrophils % 66.7; Platelet Count 503 10^3/uL (130-400); RBC 4.08 10^6/uL (4.36-5.78); RDW 11.5 % (11.8-14.1); RDW-SD 39.1 fL; WBC 8.53 10^3/uL (4.4-10.8)
--- NOTE | 2023-06-11 15:09 | W.ED.GENAD ---
Discharge Plan Discharge Details Chief Complaint: Dizzy/Sync Primary Care Provider: Basil Cruz ED Provider: Lorenzo Del Rio Home Meds and New Rx's Prescriptions: No Action losartan 100 mg tablet 100 mg PO DAILY Qty: 90 1RF amlodipine 5 mg tablet 5 mg PO DAILY Qty: 90 4RF rosuvastatin 5 mg tablet 5 mg PO DAILY Qty: 90 0RF MEN'S 50+ ADVANCED MULTIVIT CP 1 EACH capsule 1 ea PO DAILY fluticasone propionate 50 mcg/actuation spray,suspension 2 spray NS DAILY Qty: 2 11RF sildenafil 100 mg tablet 100 mg PO DAILY PRN (Reason: sexual activity) Qty: 30 12RF Rx Instructions: administer 30 minutes to 4 hours before activity Medical Decision Making This is a 67-year-old male with a past medical history of thoracic aortic aneurysm, aortic valve disease, high cholesterol, who recently had open heart surgery on May 25 of this year, and subsequently had his aortic valve replaced, as well as aortic aneurysm repair at the same time. Surgery was complicated by pneumothoraces, he spent a few days in the ICU and eventually was discharged about 1-1/2 weeks ago. Patient has been doing okay since then, but has noted that every now and then he would get spells/episodes of feeling lightheaded, getting double vision, becoming diaphoretic. He would be short of breath in those episodes, but denied any chest pain. He denies any vomiting or diarrhea otherwise. He denies any current chest pain or current shortness of breath. It was recommended that he be evaluated by [facility]. He is coming for further assessment. He denies any falls or trauma. He denies any focal exacerbating events. He does take a daily aspirin. Exam demonstrates a well-appearing male, vital signs are stable. Differential includes dysrhythmia causing his episodes, but also potential aortic pathology, pericardial effusion or other abnormality. Will evaluate for these etiologies, monitor closely and reassess. This patient will be signed out to my colleague Dr. Washington for follow-up on labs and imaging. EKG shows some T wave abnormalities in the inferior leads, and anterior leads. No evidence of STEMI though. HPI General Date/Time Provider Initiated Documentation: 06/11/23 14:53. HPI Narrative: This is a 67-year-old male with a past medical history of thoracic aortic aneurysm, aortic valve disease, high cholesterol, who recently had open heart surgery on May 25 of this year, and subsequently had his aortic valve replaced, as well as aortic aneurysm repair at the same time. Surgery was complicated by pneumothoraces, he spent a few days in the ICU and eventually was discharged about 1-1/2 weeks ago. Patient has been doing okay since then, but has noted that every now and then he would get spells/episodes of feeling lightheaded, getting double vision, becoming diaphoretic. He would be short of breath in those episodes, but denied any chest pain. He denies any vomiting or diarrhea otherwise. He denies any current chest pain or current shortness of breath. It was recommended that he be evaluated by [facility]. He is coming for further assessment. He denies any falls or trauma. He denies any focal exacerbating events. He does take a daily aspirin. Related Data Home Medications Medication Instructions Recorded Confirmed Men's 50+ Advanced Multivit Cp 1 ea PO DAILY 05/25/13 04/30/23 fluticasone propionate 50 2 spray NS DAILY #2 inhalations 11/24/22 04/30/23 mcg/actuation nasal spray,suspension sildenafil 100 mg tablet 100 mg PO DAILY PRN sexual 11/24/22 04/30/23 activity #30 tabs amlodipine 5 mg tablet 5 mg PO DAILY #90 tabs 02/17/23 04/30/23 losartan 100 mg tablet 100 mg PO DAILY #90 tabs 03/03/23 04/30/23 rosuvastatin 5 mg tablet 5 mg PO DAILY #90 tabs 04/02/23 04/30/23 Previous Rx's Medication Instructions Recorded fluticasone propionate 50 2 spray NS DAILY #2 inhalations 11/24/22 mcg/actuation nasal spray,suspension sildenafil 100 mg tablet 100 mg PO DAILY PRN sexual 11/24/22 activity #30 tabs amlodipine 5 mg tablet 5 mg PO DAILY #90 tabs 02/17/23 losartan 100 mg tablet 100 mg PO DAILY #90 tabs 03/03/23 rosuvastatin 5 mg tablet 5 mg PO DAILY #90 tabs 04/02/23 Allergies Allergy/AdvReac Type Severity Reaction Status Date / Time lisinopril AdvReac Intermediate Other (See Uncoded 04/12/23 11:13 Comment) General Stated Complaint: Dizzy/Sync TERRANCE: 3 Review of Systems All systems reviewed & are unremarkable except as noted in HPI and below PFSH All Active Problems Skin tag (Acute) Allergic rhinitis (Acute) Anxiety (Acute) History of tobacco use (Acute) Polyp of colon (Acute 10/28/06) multiple hyperplastic polyps Abdominal pain (Acute) Encounter for annual physical exam (Acute) Right arm pain (Acute) Increased body mass index (BMI) (Acute) Screening for diabetes mellitus (Acute) Hypertension (Chronic) Perforated tympanic membrane of both ears on examination (Acute) Rhinosinusitis (Acute) Pre-procedure lab exam (Acute) Severe aortic regurgitation (Acute) 03/15/23 Per [facility] Hyperlipidemia (Acute) Seborrheic keratoses (Acute) Medical History Aortic regurgitation severe by 02/18 echo Encounter for colorectal cancer screening Murmur, cardiac Perforation of tympanic membrane Surgical History H/O colonoscopy (10/14/18) dr newby, no abnormalities, repeat 10 years Hx of cardiac catheterization [facility] [place]23 Family History Mother , 84 Stroke Father , 60 Brain cancer Brother , Accidental at age 2. No problems noted. Brother No problems noted. Brother No problems noted. Brother No problems noted. Son No problems noted. Daughter No problems noted. Daughter No problems noted. Paternal Grandmother , 80s Stroke Maternal Grandmother , 22 No problems noted. Paternal Grandfather , 70s No problems noted. Maternal Grandfather , 80s No problems noted. 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 [employer] Pets and animals: Yes Pets and animals: dog(s) Sexually active: Yes Do you think of yourself as: straight/heterosexual Current gender identity: male What is your relationship status?: living with partner How often do you talk on the phone with friends or family?: three or more times per week How often do you get together with friends or relatives?: twice per week How often do you attend yazidi or mandaeism services?: 1-3 times per year Do you belong to any clubs or organized social groups?: no Panel score (0-1 are the most socially isolated patients): 2 What type of physical activity do you participate in: walking and other Details: work Duration: 15-30 minutes/day Frequency: 1-2 times per week Ambar/Caodaism: Restoration Special ambar needs: No Seatbelt use: always Helmet use: Yes Helmet use: always Drive intox or ride w/intox 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 3.ENT: Atraumatic external nose and ears. Moist MM. Neck: Symmetric, trachea midline, No thyromegaly. 4.CVS: +S1/S2, No murmurs or gallops. Peripheral pulses 2+ and equal in all extremities. Brisk capillary refill in all extremities. 5.RESP: Unlabored respiratory effort. Clear to auscultation bilaterally. No wheezes rales or rhonchi. Postoperative incisional site appears clean dry and intact. 6.GI: Soft, Nontender/Nondistended, No hepatosplenomegaly. No guarding or rebound. 7.MSK: Normocephalic/Atraumatic, Extremities w/o deformity or ttp No cyanosis or clubbing, Normal movement of all extremities. No calf tenderness 8.Skin: Warm, Dry. No rashes or lesions. 9.Neuro: brick dropper II-XII grossly intact. Sensation grossly intact, no focal neurologic deficits. 10.Psych: (AAO) x3. Appropriate mood and affect Course Vital Signs Vital signs: Vital Signs Temperature 36.7 C 06/11/23 14:35 Pulse 89 06/11/23 14:35 Respiratory Rate 18 06/11/23 14:35 Blood Pressure 128/89 06/11/23 14:35 Pulse Oximetry 95 06/11/23 14:35 Temperature 36.7 C 06/11/23 14:35 Temperature Source Oral 06/11/23 14:35 Pulse 89 06/11/23 14:35 Respiratory Rate 18 06/11/23 14:35 Respiratory Effort Normal 06/11/23 14:58 Blood Pressure 128/89 06/11/23 14:35 Blood Pressure Position Sitting 06/11/23 14:35 Pulse Oximetry 95 06/11/23 14:35 Oxygen Delivery Method Room Air 06/11/23 14:35 Oxygen Flow Rate 0 06/11/23 14:35 Lab/Test Results Lab/Test Results: Laboratory Tests Range/Units 06/11/23 14:49 WBC (4.4-10.8) 10^3/uL 8.53 RBC (4.36-5.78) 10^6/uL 4.08 L Hgb (13.5-17.5) g/dL 12.7 L Hct (40.0-50.0) % 38.1 L MCV (80-95) fL 93 MCH (27.0-33.0) pg 31.1 MCHC (32.0-36.0) % 33.3 RDW (11.8-14.1) % 11.5 L Plt Count (130-400) 10^3/uL 503 H MPV (8.0-11.0) fL 9.5 Immature Gran % 0.4 Neutrophils % 66.7 Lymphocytes % 21.3 Monocytes % 8.0 Eosinophils % 3.0 Basophils % 0.6 Nucleated RBC % (0.0-0.3) % 0.0 Absolute Neutrophils (1.2-6.7) 10^3/uL 5.69 Absolute Lymphocytes (1.2-3.4) 10^3/uL 1.82 Absolute Monocytes (0.1-0.8) 10^3/uL 0.68 Absolute Eosinophils (0.0-0.7) 10^3/uL 0.26 Absolute Basophils (0.0-0.2) 10^3/uL 0.05
[2023-06-11 15:26] LABS: ALT 47 U/L (16-63); AST 56 U/L (15-37); Albumin 2.8 g/dL (3.4-5.0); Alkaline Phosphatase 96 U/L (46-116); BUN 17 mg/dL (7-18); Bilirubin, Total 0.5 mg/dL (0.2-1.0); CREATININE 0.9 mg/dL (0.70-1.30); Calcium 8.6 mg/dL (8.5-10.1); Chloride 104 mmol/L (98-107); Estimated GFR 93.61 (mL/min/1.73m2); Glucose 100 mg/dL (74-106); NT-proBNP 354 pg/mL (<300); Potassium 5.3 mmol/L (3.5-5.1); Sodium 139 mmol/L (136-145); Total Protein 7.3 g/dL (6.4-8.2); Troponin I < 50 ng/L (<or=60)
[2023-06-11] MEDS: Normal Saline 500 ML IV (15:29)
[2023-06-11] MEDS: Omnipaque 350 MG/ML 100 ML BTL IJ (15:56)
[2023-06-11] MEDS: Normal Saline - Diluent 50 ML VIAL IJ (15:56)
--- NOTE | 2023-06-11 16:48 | DI.VRAD_ITS ---
Addendum created by Basil Mccord MD on 06/11/2023 4:55:05 PM EDT: THIS REPORT CONTAINS FINDINGS THAT MAY BE CRITICAL TO PATIENT CARE. The findings were verbally communicated via telephone conference with Dr. Washington at 4:54 PM EDT on 06/11/2023. The findings were acknowledged and understood. Initial report created on 06/11/2023 4:47:31 PM EDT: PROCEDURE INFORMATION: Exam: CTA Chest With Contrast Exam date and time: 06/11/2023 3:51 PM Age: 67 years old Clinical indication: Other: Chest pain; Prior surgery; Surgery date: <1 month; Surgery type: Thoracic aa repair and av rep x 2 weeks ago; Patient HX: Recent thoracic aa repair and av rep. Now cp TECHNIQUE: Imaging protocol: Computed tomographic angiography of the chest with contrast. Exam focused on the arteries. 3D rendering (Not supervised by radiologist): MIP and/or 3D reconstructed images were created by the technologist. Contrast material: OMNIPAQUE 350; Contrast volume: 100 ml; Contrast route: INTRAVENOUS (IV); COMPARISON: CR XR CHEST 2V PA LATERAL 02/19/2023 3:49 PM FINDINGS: Pulmonary arteries: No pulmonary artery filling defects. Aorta: Small amount of complex fluid surrounds the ascending aorta and proximal arch. 8 x 5 mm outpouching seen arising from the posterior aspect the distal aortic arch (series 10, image 53). Conventional 3 vessel arch anatomy. Patent great vessel origins. Tortuous descending thoracic aorta. Mild atherosclerotic calcification. Thyroid: Subcentimeter thyroid nodules. Lungs: Dependent atelectasis within the bilateral lower lobes. Pleural spaces: Unremarkable. No pneumothorax. No pleural effusion. Heart: Prosthetic aortic valve. Postsurgical changes ascending aortic repair. Heart size appears within normal limits. Small amount of pericardial fluid. Lymph nodes: Unremarkable. No enlarged lymph nodes. Bones/joints: Mild degenerative changes of the thoracic spine. Prior sternotomy. Soft tissues: Unremarkable. IMPRESSION: 1. Subcentimeter focal outpouching arising from the posterior aspect of the distal arch suggestive of a small pseudoaneurysm. 2. Status post ascending aorta repair with small amount of periaortic hematoma, possibly postsurgical. Consider continued follow-up as clinically warranted. 3. Dependent atelectasis. Dictated and Authenticated by: Basil Mccord MD. Ordering:MILTON Ventura MD
--- NOTE | 2023-06-11 17:23 | ED.PROG_ITS ---
Date of service: 06/11/23 Time of Service: 16:00 Medical Decision Making Assumed care of patient at 1600. Awaiting CT report and reassessment. Brief history of present illness: 67-year-old male presents for evaluation of near syncopal episodes.?He has a ast medical history of thoracic aortic aneurysm, aortic valve disease, high cholesterol, who recently had open heart surgery on May 25 of this year, and subsequently had his aortic valve replaced, as well as aortic aneurysm repair at the same time.? Surgery was complicated by pneumothoraces, he spent a few days in the ICU and eventually was discharged about 1-1/2 weeks ago.? Patient has been doing okay since then, but has noted that every now and then he would get spells/episodes of feeling lightheaded, getting double vision, becoming diaphoretic.? His last episode was yesterday. He has had some mildly low blood pressures. They initially had him back off on the blood pressure medication dosage as it had been increased prior to his discharge from the hospital. Today they told him to stop taking the blood pressure medication altogether. They told him that they would like his blood pressures systolically between 120 and 130. He has been running in the 100-110 range. Patient is totally asymptomatic at this time. He denies any chest pain or shortness of breath. No lightheadedness or dizziness. EKG did not show any acute ischemic changes. CT showed subcentimeter outpouching from the posterior aspect of the distal arch suggesting a small pseudoaneurysm. There was also possible small periaortic hematoma. Results of work-up were discussed with patient's cardiothoracic surgeon Dr. Hampton. Reviewed imaging and EKG. He states that patient should be seen by primary care physician next week for blood pressure recheck. He should stay on his beta- juan. He should stop taking his Norvasc. He should take the 50 mg of los chang daily. He should continue home blood pressure checks. These recommendations were discussed with patient. He does have an appointment coming up with primary care on Wednesday which she will keep. He understands indications to return. Sign Out Sign Out Data: Sign Out Comment: Follow-up on CT imaging and labs Last updated by Lorenzo Del Rio DO at 06/11/23 15:53 Discharge Plan Disposition Patient Disposition: Home Discharge Details Chief Complaint: Dizzy/Sync Clinical Impression: Dizziness Primary Care Provider: Basil Cruz ED Provider: Eneida Nunez Home Meds and New Rx's Prescriptions: No Action losartan 100 mg tablet 100 mg PO DAILY Qty: 90 1RF amlodipine 5 mg tablet 5 mg PO DAILY Qty: 90 4RF Patient Comments: dose changed per pt rosuvastatin 5 mg tablet 5 mg PO DAILY Qty: 90 0RF MEN'S 50+ ADVANCED MULTIVIT CP 1 EACH capsule 1 ea PO DAILY fluticasone propionate 50 mcg/actuation spray,suspension 2 spray NS DAILY Qty: 2 11RF sildenafil 100 mg tablet 100 mg PO DAILY PRN (Reason: sexual activity) Qty: 30 12RF Rx Instructions: administer 30 minutes to 4 hours before activity trazodone 50 mg tablet 50 mg PO DAILY Patient Comments: TAKE 1 TABLET BY MOUTH EVERY NIGHT amlodipine 10 mg tablet 10 mg PO DAILY Patient Comments: TAKE 1 TABLET BY MOUTH EVERY NIGHT metoprolol tartrate 25 mg tablet 25 mg PO DAILY Patient Comments: TAKE 1 TABLET BY MOUTH TWICE DAILY aspirin 81 mg Capsule 81 mg PO DAILY Discharge Instructions Instructions: Dizziness (ED) Additional Instructions: Dr. Hampton would like you to stop taking Norvasc. Continue taking losartan 50 mg daily. Continue taking your metoprolol twice a day. Keep your appointment with primary care for blood pressure recheck on Wednesday. Call offi ce with any other new or concerning symptoms. Referrals: Basil Cruz, STORE SALES CONSULTANT [Primary Care Provider] - 2 days Discharge Data Discharge Physician: Eneida Nunez
[2023-06-11 18:15] VITALS: BP 136/89; PULSE 85; RESP 16; O2SAT 94
[2023-06-11 18:59] LABS: Troponin I < 50 ng/L (<or=60)
== END 2023-06-11 18:19 | disposition home or self-care (01) ==
PROVIDERS: Student in an Organized Health Care Education/Training Program; Emergency Provider Emergency Medicine Emergency Medical Services; PCP Nurse Practitioner Family
DX: R42 Dizziness and giddiness (principal); R94.31 Abnormal electrocardiogram [ECG] [EKG]; R06.02 Shortness of breath; E78.5 Hyperlipidemia, unspecified; Z95.2 Presence of prosthetic heart valve; Z79.82 Long term (current) use of aspirin
CPT/HCPCS: 71275; 80053; 93005; 96360; 83880; 84484; 85025; 93010; 99283; 99285; J3490

== ENCOUNTER 2023-07-16 08:17 | Outpatient (CLI) | payer MEDICARE, SELFPAY ==
[2023-07-16 10:45] LABS: HGB 13.7 g/dL (13.5-17.5); MCH 30.1 pg (27.0-33.0); MCHC 32.6 % (32.0-36.0); MCV 92 fL (80-95); Platelet Count 342 10^3/uL (130-400); RBC 4.55 10^6/uL (4.36-5.78); RDW 12.3 % (11.8-14.1); RDW-SD 41.4 fL; WBC 6.67 10^3/uL (4.4-10.8)
[2023-07-16 11:04] LABS: ALT 22 U/L (16-63); AST 16 U/L (15-37); Albumin 3.5 g/dL (3.4-5.0); Alkaline Phosphatase 81 U/L (46-116); Anion Gap 7.5 mmol/L (3-11); BUN 13 mg/dL (7-18); Bilirubin, Total 0.4 mg/dL (0.2-1.0); CO2 27.5 mmol/L (21.0-32.0); Chloride 108 mmol/L (98-107); Estimated GFR 82.49 (mL/min/1.73m2); Glucose 85 mg/dL (74-106); Sodium 143 mmol/L (136-145); Total Protein 7.1 g/dL (6.4-8.2)
== END 2023-07-16 08:18 | disposition home or self-care (01) ==
LOC: LOS 08:18
PROVIDERS: PCP Nurse Practitioner Family; Referring Provider Nurse Practitioner Family; Visit Provider Nurse Practitioner Family
DX: R42 Dizziness and giddiness (principal); I10 Essential (primary) hypertension
CPT/HCPCS: 36415; 80053; 85027

== ENCOUNTER 2023-07-28 09:00 | Outpatient (RCR) | payer MEDICARE, SELFPAY | END 2023-07-29 23:59 | disposition home or self-care (01) | LOC: CR 09:00 | PROVIDERS: PCP Nurse Practitioner Family; Referring Provider Nurse Practitioner Family; Visit Provider Internal Medicine Cardiovascular Disease | DX: Z95.2 Presence of prosthetic heart valve (principal); Z51.89 Encounter for other specified aftercare | CPT/HCPCS: S9472 ==

== ENCOUNTER 2023-08-27 09:55 | Outpatient (RCR) | payer MEDICARE, SELFPAY | END 2023-08-28 23:59 | disposition home or self-care (01) | LOC: CR 09:55 | PROVIDERS: PCP Nurse Practitioner Family; Referring Provider Nurse Practitioner Family; Visit Provider Internal Medicine Cardiovascular Disease | DX: Z95.2 Presence of prosthetic heart valve (principal); Z51.89 Encounter for other specified aftercare | CPT/HCPCS: S9472 ==

== ENCOUNTER 2023-09-27 09:12 | Outpatient (RCR) | payer MEDICARE, SELFPAY | END 2023-09-28 23:59 | disposition home or self-care (01) | LOC: CR 09:12 | PROVIDERS: PCP Nurse Practitioner Family; Referring Provider Nurse Practitioner Family; Visit Provider Internal Medicine Cardiovascular Disease | DX: Z95.2 Presence of prosthetic heart valve (principal); Z51.89 Encounter for other specified aftercare | CPT/HCPCS: S9472 ==

== ENCOUNTER → 2023-10-25 19:28 | Outpatient (CLI) | payer MEDICARE, SELFPAY ==
--- NOTE | 2023-10-25 10:15 | DI.RAD_ITS ---
Exam(s) XR HAND LT COMPLETE EXAM: XR HAND LT COMPLETE CLINICAL HISTORY: 6 months, unchanging, firm mass w/ prox puffiness,r22.32. TECHNIQUE: 2D digital imaging was performed of the left hand. Four views were obtained. AP, latera l and oblique views were obtained. COMPARISON: No exams were available for comparison FINDINGS: BONES: No acute fracture is present. No bony destructive lesion is seen. JOINTS: No dislocation present. There are degenerative changes seen in the hand characterized by join t space narrowing and osteophytes particularly at the DIP joints of the fingers. SOFT TISSUE: No suspicious soft tissue calcifications are seen. IMPRESSION: 1. Mild degenerative changes of the hand. 2. No suspicious soft tissue calcifications or masses are seen on this x-ray. If there is continued clinical concern, an MRI should be considered for further evaluation. DATA REPOSITORY: RADIATION DOSE DELIVERED:
== END ==
PROVIDERS: PCP Nurse Practitioner Family; Visit Provider Nurse Practitioner Family
DX: R22.32 Localized swelling, mass and lump, left upper limb (principal)
CPT/HCPCS: 73130

== ENCOUNTER 2023-10-27 09:26 | Outpatient (RCR) | payer MEDICARE, SELFPAY | END 2023-10-28 23:59 | disposition home or self-care (01) | LOC: CR 09:26 | PROVIDERS: PCP Nurse Practitioner Family; Referring Provider Nurse Practitioner Family; Visit Provider Internal Medicine Cardiovascular Disease | DX: Z95.828 Presence of other vascular implants and grafts (principal); Z95.2 Presence of prosthetic heart valve; Z51.89 Encounter for other specified aftercare | CPT/HCPCS: S9472 ==

== ENCOUNTER 2023-11-01 09:35 | Outpatient (RCR) | payer MEDICARE, SELFPAY | END 2023-11-28 23:59 | disposition home or self-care (01) | LOC: CR 09:35 | PROVIDERS: PCP Nurse Practitioner Family; Referring Provider Nurse Practitioner Family; Visit Provider Internal Medicine Cardiovascular Disease | DX: Z95.2 Presence of prosthetic heart valve (principal); Z51.89 Encounter for other specified aftercare | CPT/HCPCS: S9472 ==

== ENCOUNTER → 2023-11-09 10:00 | Outpatient (BNVA) | payer MEDICARE, SELFPAY | PROVIDERS: PCP Nurse Practitioner Family; Referring Provider Nurse Practitioner Family; Visit Provider Student in an Organized Health Care Education/Training Program | DX: M72.0 Palmar fascial fibromatosis [Dupuytren] (principal); R22.32 Localized swelling, mass and lump, left upper limb | CPT/HCPCS: 99213 ==

== ENCOUNTER → 2024-02-23 01:31 | Outpatient (CLI) | payer MEDICARE, SELFPAY ==
--- NOTE | 2024-02-23 06:45 | DI.CTLCSR_ITS ---
Exam(s) CT CHEST LUNG CANCER SCREEN EXAM: CT CHEST LUNG CANCER SCREEN CLINICAL HISTORY: Screening for lung cancer,FORMER SMOKER, Z87.891 TECHNIQUE: Imaging Protocol: Axial computed tomography images with coronal and sagittal reformatted images were created and reviewed. Low dose screening protocol. COMPARISON: CT CT THORAX CTA from 06/11/2023 FINDINGS: Tracheobronchial tree: No bronchiectasis or mucus plugging.. Mediastinum and [place]: No dominant adenopathy or fluid collection. Pulmonary parenchyma: No consolidation or dominant measurable mass. Mild emphysematous changes. Mild right basilar scarring versus atelectasis. Lung Nodules: None. Pleura: No effusion. No pneumothorax. Heart: The heart is not dilated. No coronary artery calcifications are seen. Aortic valve replaceme nt. Aorta: Ascending aorta measures 3.9 cm and shows [id number] atherosclerotic calcification. Upper abdomen: Nonobstructing stone upper pole left kidney. Bones: Sternal wires. Soft Tissues: Unremarkable. IMPRESSION: No suspicious pulmonary nodules. Lung RADS Cat 1 - Negative: No nodules and definitely benign nodules Lung-RADS 1.0 CATEGORIES: Category 0 - Prior chest CT exam(s) being located for comparison. Category 1 - Annual screening in 12 months. No nodules or definitely benign nodules. Category 2 - Annual screening in 12 months. Benign appearance. Nodules with low likelihood of becomin g active cancer. Category 3 - 6-month follow-up. Probably benign. Short-term follow-up suggested. Nodules with low lik elihood of becoming active cancer. Category 4A - 3-month follow-up and CT/PET if >8 mm in size. Suspicious finding. Findings which requi re additional testing. Category 4B - Findings which require additional testing and tissue sampling. Category 4X - Category 3 or 4 nodules with additional features or imaging findings that increases the suspicion of malignancy. Modifier S- Potentially clinically significant findings (non lung cancer) RADIATION DOSE DELIVERED: Total DLP DATA REPOSITORY: All CT scans at this facility are submitted to the National Radiology Data Registry (NRDR) Dose Index Registry (DIR) with the [employer] ([employer]). RADIATION OPTIMIZATION: All CT scans at this facility use at least one of these dose optimization te chniques: automated exposure control; mA and/or kV adjustment per patient size (includes targeted exa ms where dose is matched to clinical indication); or iterative reconstruction.
== END ==
PROVIDERS: PCP Nurse Practitioner Family; Visit Provider Nurse Practitioner Family
DX: Z12.2 Encounter for screening for malignant neoplasm of respiratory organs (principal); J43.8 Other emphysema; R91.8 Other nonspecific abnormal finding of lung field; Z95.2 Presence of prosthetic heart valve; Z87.891 Personal history of nicotine dependence
CPT/HCPCS: 71271

== ENCOUNTER 2025-02-12 15:23 | Outpatient (REF) | payer MEDICARE, SELFPAY ==
[2025-02-12 21:39] LABS: ALT 26 U/L (16-63); AST 20 U/L (15-37); Albumin 3.8 g/dL (3.4-5.0); Alkaline Phosphatase 76 U/L (46-116); Anion Gap 6.3 mmol/L (3-11); BUN 19 mg/dL (7-18); Bilirubin, Total 0.8 mg/dL (0.2-1.0); CO2 28.7 mmol/L (21.0-32.0); CREATININE 1.6 mg/dL (0.70-1.30); Calcium 9.1 mg/dL (8.5-10.1); Calculated LDL 60 mg/dL (<100); Chloride 107 mmol/L (98-107); Cholesterol 138 mg/dL (<200); Estimated GFR 46.35 (mL/min/1.73m2); Glucose 108 mg/dL (74-106); HDL Cholesterol 70 mg/dL (>or=40); Potassium 4.1 mmol/L (3.5-5.1); Sodium 142 mmol/L (136-145); Total Protein 6.7 g/dL (6.4-8.2); Triglyceride 40 mg/dL (<150)
[2025-02-13 20:17] LABS: HIV-1/2 Ag & Ab Screen Negative (Negative)
[2025-02-13 20:21] LABS: HBs Antibody, Quant <3.1 mIU/mL (See Note); Hep B Surface Ab Negative (See Note); Hepatitis B Core Antibody Negative (Negative); Hepatitis B Surface Antigen Negative (Negative); Hepatitis C Ab w Rflx HCV PCR Negative (Negative)
== END 2025-02-12 15:24 | disposition home or self-care (01) ==
LOC: LBN 15:23
PROVIDERS: PCP Nurse Practitioner Family; Visit Provider Nurse Practitioner Family
DX: E78.5 Hyperlipidemia, unspecified (principal); Z11.59 Encounter for screening for other viral diseases; Z11.4 Encounter for screening for human immunodeficiency virus [HIV]; Z23 Encounter for immunization; H72.93 Unspecified perforation of tympanic membrane, bilateral
CPT/HCPCS: 80053; 80061; 86704; 86706; 86803; 87340; 87389